=== PATIENT | male | born 1980 | race Caucasian/White ===

== ENCOUNTER 2016-05-14 12:08 | Inpatient (IN) ==
[2016-05-14] MEDS ORDERED: *HR* OxyCODONE/APAP 5/325 TABLET PO ONE (13:07)
[2016-05-14] MEDS ORDERED: Vancomycin 1,250 MG in D5% in Water 250 ML IVPB ONE (13:08)
[2016-05-14 13:38] LABS: INR 1.1; Prothrombin Time 11.5 Seconds (9.4-12.1)
[2016-05-14 13:41] LABS: Activated Partial Thrombo Time 31.8 Seconds (26.0-36.0)
--- NOTE | 2016-05-14 13:41 | Emergency Department Note ---
Disposition Clinical Impression: Cellulitis of hand Dog bite Qualifiers: Encounter type: subsequent encounter Qualified Code(s): W54.0XXD - Bitten by dog, subsequent encounter Disposition: Admitted As Inpatient Condition: Good Animal Bite HPI - General Chief Complaint: ED Animal Bite Stated Complaint: Dog bite to hand Time Seen by Provider: 05/14/16 12:33 Source: patient Mode of arrival: ambulatory Limitations: no limitations Nursing Notes Reviewed: Yes Vital Signs Reviewed: Yes - History of Present Illness HPI Narrative: Mr. Henderson is a 36-year-old male that present to the ED for dog bite to the right hand. Bit by previous pet while grabbing food from dog. Initially seen at [place] ED 4 days ago, following day seen by ortho. Patient seen by Ortho again yesterday, patient states he was told he would need admission for IV antibiotics. Patinet states R hand is painful and tight, admits to difficulty extending his fingers. He notes some clear drainage from wound sites and mild swelling of his R hand and fingers. Patient reports four episodes of vomiting 3 days ago and one episode last night. Patient admits to lightheadedness today, denies syncope. Pt Subjective Complaint: animal bite Onset (ago): day(s) Animal: dog Description of Animal: household pet Mechanism: bite Right: hand (3rd and 4th fingers) Pain Description: sharp, other (tight) Context: other (involving food) Associated symptoms: Denies: numbness, weakness, bleeding, fever, chills, rash, syncope, headache - Related Data Home Medications Medication Instructions Recorded Confirmed Clindamycin HCl [Cleocin HCl] 300 mg PO Q6H 05/14/16 05/14/16 Doxycycline Monohydrate [Mondoxyne 100 mg PO BID 05/14/16 05/14/16 Nl] OxyCODONE/APAP 5/325 [Percocet 1 each PO Q6HR PRN 05/14/16 05/14/16 5/325 MG] Previous Rx's Medication Instructions Recorded Naproxen [Naprosyn] 500 mg PO BID #14 tablet 12/07/14 Allergies Allergy/AdvReac Type Severity Reaction Status Date / Time hydrocodone AdvReac Headache Verified 05/14/16 15:03 Penicillins AdvReac Swelling Verified 05/14/16 12:16 of Lip/Tongue/Throat Sulfa (Sulfonamide AdvReac Swelling Verified 05/14/16 12:16 Antibiotics) of Lip/Tongue/Throat peaches AdvReac Swelling Uncoded 05/14/16 12:16 of Lip/Tongue/Throat All systems ED: reviewed and negative except as stated. Constitutional: Denies: fever, chills Eyes: Denies: vision change ENT ED: Denies: hearing loss Cardiovascular: Denies: chest pain Respiratory: Denies: dyspnea Gastrointestinal: Reports: nausea, vomiting. Denies: abdominal pain, melena, hematochezia Genitourinary: Denies: urgency, dysuria Neurological: Reports: other (lightheadedness) Past Medical History - Past Medical History Attestation: Yes The following information was validated with the patient. Source: patient Medical history: Reports: no medical history Surgical history: Reports: no surgical history Psychiatric history: Reports: no psych history - Social History Smoking Status: Current every day smoker Packs per day: 2 Smokeless Tobacco Status: No Alcohol use: Reports: occasionally Drug use: Reports: none Physical Exam - General Limitations: no limitations General appearance: alert, in no apparent distress - Head Head exam: atraumatic, normocephalic - Eye Eye exam: Present: normal appearance, EOMI - ENT ENT exam: normal exam, mucous membranes moist, normal external ear exam - Neck Neck exam: Present: normal inspection, full ROM - Chest Chest inspection: Present: normal inspection, symmetric chest wall rise - Respiratory Respiratory exam: Present: normal lung sounds bilaterally - Cardiovascular Cardiovascular exam: Present: regular rate, +S1, +S2 - Abdominal Exam Abdominal exam: Present: soft, Non-Tender, normal bowel sounds - Extremities Exam Extremities exam: Present: normal inspection, full ROM. Absent: pedal edema - Expanded Upper Extremity Exam Forearm/Wrist exam: Present: normal inspection. Absent: tenderness, swelling, erythema Hand exam: Present: tenderness (dorsum of R hand and 3rd and 4th fingers), swelling (of dorsum of R hand and 4th finger), erythema (of R 4th finger), other (notes mutliple small scabbed abrasions and lacerations on 3rd and 4th fingers on R hand) Neuromotor exam: Normal: wrist extension. Abnorm: fingers 2-5 abduction (due to pain) Vascular exam: Normal: capillary refill - Neurological Exam Neurological exam: Present: alert, oriented X3 - Psychiatric Psychiatric exam: Present: normal affect, normal mood - Skin Skin exam: Present: warm, dry Course Course Narrative: Patient started on IV vancomycin and pain control. Patient agreeable to admission. Plan to discuss case with ortho. - Consultations Consultation #1: Dr. Cole spoke to Dr. Wood who agrees to see patient. Will place consult to Ortho at this time. Time: 14:34 Consultation #2: Spoke to [employer] [employer] hospitalist, agreeable to accept patient. Vital Signs Temperature 97.6 F 05/14/16 12:11 Pulse Rate 110 05/14/16 12:11 Respiratory Rate 16 05/14/16 12:11 Blood Pressure 132/78 05/14/16 12:11 O2 Sat by Pulse Oximetry 97 05/14/16 12:11 Temperature 97.8 F 05/14/16 15:58 Pulse Rate 68 05/14/16 15:58 Respiratory Rate 16 05/14/16 15:58 Blood Pressure 111/73 05/14/16 15:58 O2 Sat by Pulse Oximetry 100 05/14/16 15:58 Oxygen Delivery Oxygen Delivery Room Air Animal Bite - Differential Diagnosis Differential Diagnosis: Likely: dog bite - Medical Records Medical records reviewed: Yes I reviewed the patient's medical records. - Lab Data Lab results reviewed: Yes I reviewed the patient's lab results. Result diagrams: 05/14/16 13:19 05/14/16 13:19 Lab Results 05/14/16 05/14/16 05/14/16 Range/Units 13:19 13:19 13:19 WBC 4.7 (4.3-11.1) K/mcL RBC 4.87 (4.19-5.50) M/mcL Hgb 14.8 (12.9-16.9) g/dL Hct 45.1 (37.5-50.1) % MCV 92.6 (83.0-100.0) fL MCH 30.4 (28.0-33.3) pg MCHC 32.8 (31.6-35.5) g/dL RDW 13.7 (11.5-14.5) % Plt Count 136 L (140-400) K/mcL MPV 13.2 H (9.4-12.4) fL Immature Gran % 0.2 (0-4) % Seg Neutrophils % 63.4 % Lymphocytes % 26.1 % Monocytes % 7.3 % Eosinophils % 2.4 % Basophils % 0.6 % Neutrophils # 3.0 (1.6-8.9) K/mcL Lymphocytes # 1.2 (0.6-4.6) K/mcL Monocytes # 0.3 (0.0-1.3) K/mcL Eosinophils # 0.1 (0.0-0.6) K/mcL Basophils # 0.0 (0.0-0.2) K/mcL ESR (0-10) mm/hr PT 11.5 (9.4-12.1) Seconds INR 1.1 APTT 31.8 (26.0-36.0) Seconds Sodium 138 (136-145) mEq/L Potassium 4.2 (3.5-4.5) mEq/L Chloride 103 (98-109) mEq/L Carbon Dioxide 29 (19-29) mEq/L BUN 13 (8-26) mg/dL Creatinine 1.05 (0.72-1.25) mg/dL Est GFR ( Amer) > 60 (> 60) Est GFR (Non-Af Amer) > 60 (> 60) BUN/Creatinine Ratio 12 (6-26) Glucose 72 (70-99) mg/dL Calculated Osmolality 285 (280-300) Lactic Acid (0.5-2.2) mmol/L Calcium 9.7 (8.6-10.8) mg/dL Magnesium 2.1 (1.6-2.6) mg/dL Total Bilirubin 0.4 (0.2-1.2) mg/dL Direct Bilirubin 0.2 (0.0-0.5) mg/dL Indirect Bilirubin 0.2 (0.0-1.2) mg/dL AST 37 H (5-34) Units/L ALT 67 H (0-55) Units/L Alkaline Phosphatase 63 (38-126) Units/L C-Reactive Protein (Less than 5) mg/L Serum Total Protein 7.4 (6.0-8.3) g/dL Albumin 3.9 (3.5-5.0) g/dL Globulin 3.5 (2.4-3.5) g/dL Albumin/Globulin Ratio 1.1 (1.1-2.2) 05/14/16 05/14/16 05/14/16 Range/Units 13:19 13:19 13:19 WBC (4.3-11.1) K/mcL RBC (4.19-5.50) M/mcL Hgb (12.9-16.9) g/dL Hct (37.5-50.1) % MCV (83.0-100.0) fL MCH (28.0-33.3) pg MCHC (31.6-35.5) g/dL RDW (11.5-14.5) % Plt Count (140-400) K/mcL MPV (9.4-12.4) fL Immature Gran % (0-4) % Seg Neutrophils % % Lymphocytes % % Monocytes % % Eosinophils % % Basophils % % Neutrophils # (1.6-8.9) K/mcL Lymphocytes # (0.6-4.6) K/mcL Monocytes # (0.0-1.3) K/mcL Eosinophils # (0.0-0.6) K/mcL Basophils # (0.0-0.2) K/mcL ESR 11 H (0-10) mm/hr PT (9.4-12.1) Seconds INR APTT (26.0-36.0) Seconds Sodium (136-145) mEq/L Potassium (3.5-4.5) mEq/L Chloride (98-109) mEq/L Carbon Dioxide (19-29) mEq/L BUN (8-26) mg/dL Creatinine (0.72-1.25) mg/dL Est GFR ( Amer) (> 60) Est GFR (Non-Af Amer) (> 60) BUN/Creatinine Ratio (6-26) Glucose (70-99) mg/dL Calculated Osmolality (280-300) Lactic Acid 1.2 (0.5-2.2) mmol/L Calcium (8.6-10.8) mg/dL Magnesium (1.6-2.6) mg/dL Total Bilirubin (0.2-1.2) mg/dL Direct Bilirubin (0.0-0.5) mg/dL Indirect Bilirubin (0.0-1.2) mg/dL AST (5-34) Units/L ALT (0-55) Units/L Alkaline Phosphatase (38-126) Units/L C-Reactive Protein 4 (Less than 5) mg/L Serum Total Protein (6.0-8.3) g/dL Albumin (3.5-5.0) g/dL Globulin (2.4-3.5) g/dL Albumin/Globulin Ratio (1.1-2.2) Attestation Statement - Attestation Attestation: I examined this patient and my medical decision-making was reviewed with the AIRCRAFT [employer]UCT[employer] REPAIRER/PA/Advanced Practice Nurse/Resident Physician. I agree with the documented findings, disposition and treatment plan as described except to the extent set forth below. She presents to the ER for evaluation of hand cellulitis. He was bitten by a small amount 2 days ago was seen by Dr. [facility] was following up today has concerns about worsening cellulitis and inability to extend his fingers without significant amount of pain she was sent here for evaluation. Trying pass range of motion flexion and extension of the hand patient has extreme amount of pain and has minimal erythema around the bite wound. We spoke with Dr Wood admit to the hospitalist service with consult for [facility]
[2016-05-14 13:47] LABS: Basophils % 0.6 %; Eosinophils # 0.1 K/mcL (0.0-0.6); Eosinophils % 2.4 %; Hematocrit 45.1 % (37.5-50.1); Hemoglobin 14.8 g/dL (12.9-16.9); Immature Granulocytes % 0.2 % (0-4); Lymphocytes # 1.2 K/mcL (0.6-4.6); Lymphocytes % 26.1 %; Mean Corpuscular HGB Conc 32.8 g/dL (31.6-35.5); Mean Corpuscular Hemoglobin 30.4 pg (28.0-33.3); Mean Corpuscular Volume 92.6 fL (83.0-100.0); Mean Platelet Volume 13.2 fL (9.4-12.4); Monocytes # 0.3 K/mcL (0.0-1.3); Monocytes % 7.3 %; Platelet Count 136 K/mcL (140-400); Red Blood Count 4.87 M/mcL (4.19-5.50); Red Cell Distribution Width 13.7 % (11.5-14.5); Segmented Neutrophils % 63.4 %
[2016-05-14 13:48] LABS: Alanine Aminotransferase 67 Units/L (0-55); Albumin 3.9 g/dL (3.5-5.0); Albumin/Globulin Ratio 1.1 (1.1-2.2); Alkaline Phosphatase 63 Units/L (38-126); Aspartate Amino Transferase 37 Units/L (5-34); BUN/Creatinine Ratio 12 (6-26); Bilirubin,Direct 0.2 mg/dL (0.0-0.5); Bilirubin,Indirect 0.2 mg/dL (0.0-1.2); Bilirubin,Total 0.4 mg/dL (0.2-1.2); Blood Urea Nitrogen 13 mg/dL (8-26); Calcium 9.7 mg/dL (8.6-10.8); Carbon Dioxide 29 mEq/L (19-29); Chloride 103 mEq/L (98-109); Globulin 3.5 g/dL (2.4-3.5); Glucose 72 mg/dL (70-99); Magnesium 2.1 mg/dL (1.6-2.6); Osmolality,Calculated 285 (280-300); Potassium 4.2 mEq/L (3.5-4.5); Sodium 138 mEq/L (136-145); Total Protein 7.4 g/dL (6.0-8.3); eGFR For African Americans > 60 (> 60); eGFR For Non-African Americans > 60 (> 60)
--- NOTE | 2016-05-14 17:26 | Internal Med History&Physical ---
Date of Encounter: 05/14/16 Time of Encounter: 17:00 Assessment and Plan (1) Dog bite Current visit: Yes Status: Acute - Bitten by vaccinated pet dog on 05/10. Low risk for rabies. - Patient failed to response to outpatient antibiotic treatment and needs to be admitted for further evaluation and management including IV antibiotics. - Given his penicillin allergy, will start Levofloxacin 500 mg IV q24H and metronidazole 500 mg IV q8H. - Continue to monitor. Qualifiers: Encounter type: subsequent encounter Qualified Code(s): W54.0XXD - Bitten by dog, subsequent encounter (2) Tenosynovitis of fingers Current visit: Yes Status: Suspected - Concern of septic tenosynovitis of right middle and ring finger. - Appreciate orthopedic surgery evaluation and recommendation/intervention. (3) Cellulitis of hand Current visit: Yes Status: Acute - Affecting right hand especially right middle and ring fingers. - See above. (4) Tobacco abuse Current visit: Yes Status: Acute - Patient smoked two pack/day. - Patient education about smoking cessation. - Consider to give nicotine patches if needed. (5) DVT prophylaxis Current visit: Yes Status: Acute - SQ heparin. Internal Medicine - H&P: HPI Chief complaint: Dog bite at right hand Admitted From: Home Plans for Post Hospital Care: Home History of present illness: Mr. Henderson is a 36 year old male without significant PMH who presented with right hand swelling and pain after a dog bite on 05/10. Patient went to [place] ED after the incident and started on Keflex. Patient was referred to see [place] [facility]/orthopedic surgery on 05/12. No surgical intervention was indicated at that time. Patient was told to continue antibiotic but also instructed to come to ED if symptoms worse. Patient reports persistent swelling and pain of right hand with right middle and ring fingers fixed at slightly flexed position. Patient reports no numbnes/tingling or weakness but cannot move those fingers due to pain. Patient also has some lightheadedness but denies fever, chills, chest pain, shortness of breath, cough, nausea, vomiting, diarrhea, dysuria, easily bleeding or bruise. Patient states the dog bit him is a pet dog with full vaccination and no known rabies. Patient reports allergy to penicillin with swelling throat. Past Med Surg Social Fam HX - Past Medical History Medical history: no medical history Psychiatric history: no psych history - Past Surgical History Surgical History: no surgical history - Social History Smoking Status: Current every day smoker Packs per day: 2 Smokeless Tobacco Status: No Alcohol use: occasionally Drug use: other (History of heroin abuse, last use three years ago per patient. ) Internal Medicine - H&P: Meds Naproxen [Naprosyn] 500 mg PO BID #14 tablet 12/07/14 [Rx] Clindamycin HCl [Cleocin HCl] 300 mg PO Q6H 05/14/16 [History] Doxycycline Monohydrate [Mondoxyne Nl] 100 mg PO BID 05/14/16 [History] OxyCODONE/APAP 5/325 [Percocet 5/325 MG] 1 each PO Q6HR PRN 05/14/16 [History] Allergies hydrocodone Adverse Reaction (Verified 05/14/16 15:03) Headache Penicillins Adverse Reaction (Verified 05/14/16 12:16) Swelling of Lip/Tongue/Throat Sulfa (Sulfonamide Antibiotics) Adverse Reaction (Verified 05/14/16 12:16) Swelling of Lip/Tongue/Throat peaches Adverse Reaction (Uncoded 05/14/16 12:16) Swelling of Lip/Tongue/Throat All Systems PM: A 10-system review of systems was performed and is negative for pertinent findings except as documented above in the HPI. - Constitutional Constitutional: no anorexia, no chills, no fever(s) - EENT Eyes: no change in vision Ears: no decreased hearing Nose, mouth and throat: no dysphagia, no odynophagia - Cardiovascular Cardiovascular ROS IM: lightheadedness, no chest pain, no palpitations, no syncope - Respiratory Respiratory: no cough, no dyspnea, no hemoptysis - Gastrointestinal Gastrointestinal: no abdominal pain, no hematochezia, no melena, no nausea, no vomiting - Genitourinary Genitourinary ROS male: no difficulty urinating, no dysuria, no hematuria - Musculoskeletal Musculoskeletal ROS IM: as per HPI - Integumentary Integumentary IM: as per HPI - Neurological Neurological ROS: no focal weakness, no numbness, no tingling - Hematologic/Lymphatic Hematologic/Lymphatic: no easy bleeding, no easy bruising - Constitutional Vitals: Temp Pulse Resp BP Pulse Ox 97.8 F 68 16 111/73 100 05/14/16 15:58 05/14/16 15:58 05/14/16 15:58 05/14/16 15:58 05/14/16 15:58 General appearance: Present: cooperative, A&O X 3, no acute distress, answers questions appropriately - Head Head exam: Present: atraumatic, normocephalic - Eye Eye exam: Present: PERRL, conjuntiva pink, sclera anicteric - Neck Neck exam general surgery: Present: supple, trachea midline. Absent: lymphadenopathy - Respiratory Respiratory exam: Present: CTAB. Absent: accessory muscle use, rales, rhonchi, wheezes - Cardiovascular Cardiovascular exam: Present: RRR, +S1, +S2. Absent: diastolic murmur, gallop, rubs, systolic murmur - GI/Abdominal GI/Abdominal exam: Present: normal bowel sounds, soft, no peritoneal signs. Absent: distended, tenderness - Extremities Exam Extremities exam: Present: warm, radial pulses palpable and symetrical. Absent : calf tenderness, cyanotic, pedal edema Additional comments: Dorsum of right hand and 3rd and 4th fingers swelling and tenderness to palpation. Multiple small scabbed abrasions and lacerations on 3rd and 4th fingers on right hand noted. The right hand and fingers are in slightly flexed position. - Neurological Exam Neurological exam: Present: CN II-XII intact, oriented X3, no focal deficits. Absent: pronater drift, facial droop, speech deficit - Skin Skin exam: Present: dry, intact Internal Med - H&P Results - Labs CBC & Chem 7: 05/14/16 13:19 05/14/16 13:19
[2016-05-14] MEDS ORDERED: Naloxone 0.4 MG/ML INJ IVP PRN (17:38)
[2016-05-14] MEDS ORDERED: Ondansetron 4 MG/2 ML VIAL IVP PRN (17:38)
[2016-05-14] MEDS: *HR* Morphine 2 MG/ML SYRINGE IVP PRN (19:26)
[2016-05-14] MEDS: Nicotine 21 MG PATCH.TD24 TD SCH (19:30)
[2016-05-14] MEDS: Levofloxacin 500 MG/100 ML 500 MG/100 ML BAG IVPB SCH (19:31)
[2016-05-14] MEDS: *HR* Heparin 5,000 UNIT/ML VIAL SQ SCH (19:35)
[2016-05-14] MEDS: MetroNIDAZOLE 500 MG/100 ML 500 MG/100 ML BAG IVPB SCH (20:27)
[2016-05-14] MEDS: *HR* OxyCODONE/APAP 5/325 TABLET PO PRN (23:09)
[2016-05-15 02:50] LABS: Basophils % 0.9 %; Eosinophils # 0.1 K/mcL (0.0-0.6); Eosinophils % 3.9 %; Hematocrit 41.4 % (37.5-50.1); Hemoglobin 13.7 g/dL (12.9-16.9); Immature Granulocytes % 0.3 % (0-4); Immature Platelets 14.7 % (1.1-6.1); Lymphocytes # 1.2 K/mcL (0.6-4.6); Lymphocytes % 36.5 %; Mean Corpuscular HGB Conc 33.1 g/dL (31.6-35.5); Mean Corpuscular Hemoglobin 30.4 pg (28.0-33.3); Mean Corpuscular Volume 91.8 fL (83.0-100.0); Mean Platelet Volume 12.8 fL (9.4-12.4); Monocytes # 0.3 K/mcL (0.0-1.3); Neutrophils # 1.7 K/mcL (1.6-8.9); Platelet Count 130 K/mcL (140-400); Red Blood Count 4.51 M/mcL (4.19-5.50); Red Cell Distribution Width 13.6 % (11.5-14.5); Segmented Neutrophils % 49.4 %
[2016-05-15 03:04] LABS: BUN/Creatinine Ratio 14 (6-26); Blood Urea Nitrogen 11 mg/dL (8-26); Calcium 8.9 mg/dL (8.6-10.8); Carbon Dioxide 24 mEq/L (19-29); Chloride 108 mEq/L (98-109); Glucose 93 mg/dL (70-99); Osmolality,Calculated 287 (280-300); Potassium 4.3 mEq/L (3.5-4.5); Sodium 139 mEq/L (136-145); eGFR For African Americans > 60 (> 60); eGFR For Non-African Americans > 60 (> 60)
[2016-05-15] MEDS: *HR* Morphine 2 MG/ML SYRINGE IVP PRN ×3 (03:25→20:17)
[2016-05-15] MEDS: MetroNIDAZOLE 500 MG/100 ML 500 MG/100 ML BAG IVPB SCH ×3 (03:28→20:17)
[2016-05-15] MEDS: *HR* OxyCODONE/APAP 5/325 TABLET PO PRN ×3 (06:36→23:20)
[2016-05-15] MEDS: *HR* Heparin 5,000 UNIT/ML VIAL SQ SCH ×2 (06:37→17:35)
[2016-05-15] MEDS: Nicotine 21 MG PATCH.TD24 TD SCH (08:12)
--- NOTE | 2016-05-15 12:32 | Internal Med Progress Note ---
<Lizz Paz - Last Filed: 05/15/16 14:55> Date of Encounter: 05/15/16 Time of Encounter: 10:00 - Assessment and plan (1) Dog bite Current Visit: Yes Status: Acute Assessment and plan: - Bitten by vaccinated pet dog on 05/10. Low risk for rabies. - Patient failed to response to outpatient antibiotic treatment and needs to be admitted for further evaluation and management including IV antibiotics. - Continue levofloxacin 500 mg IV q24H and metronidazole 500 mg IV q8H. - Continue to monitor. Qualifiers: Encounter type: subsequent encounter Qualified Code(s): W54.0XXD - Bitten by dog, subsequent encounter (2) Tenosynovitis of fingers Current Visit: Yes Status: Suspected Assessment and plan: - Concern of septic tenosynovitis of right middle and ring finger. - Significantly improves as patient can move his fingers much better with swelling and pain decreased. - Appreciate orthopedic surgery evaluation and recommendation. (3) Cellulitis of hand Current Visit: Yes Status: Acute Assessment and plan: - Affecting right hand especially right middle and ring fingers. - See above. (4) Tobacco abuse Current Visit: Yes Status: Acute Assessment and plan: - Patient smoked two pack/day. - Patient education about smoking cessation. - Consider to give nicotine patches if needed. (5) DVT prophylaxis Current Visit: Yes Status: Acute Assessment and plan: - SQ heparin. - Subjective Interval history: No significant event noted overnight. Patient was seen and examined this morning. Patient reports significant improvement of right hand swelling and pain and he can move his right hand and fingers much better compared to yesterday. Patient denies fever, chills, nausea, vomiting, diarrhea, chest pain , shortness of breath. - Constitutional Vitals: Temp Pulse Resp BP Pulse Ox 97.8 F 84 16 105/66 97 05/15/16 11:08 05/15/16 11:08 05/15/16 11:08 05/15/16 11:08 05/15/16 11:08 General appearance: Present: cooperative, A&O X 3, no acute distress, answers questions appropriately - Head Head exam: Present: atraumatic, normocephalic - Eye Eye exam: Present: PERRL, conjuntiva pink, sclera anicteric - Neck Neck exam general surgery: Present: supple, trachea midline. Absent: lymphadenopathy - Respiratory Respiratory exam: Present: CTAB. Absent: accessory muscle use, rales, rhonchi, wheezes - Cardiovascular Cardiovascular exam: Present: RRR, +S1, +S2. Absent: diastolic murmur, gallop, rubs, systolic murmur - GI/Abdominal GI/Abdominal exam: Present: normal bowel sounds, soft, no peritoneal signs. Absent: distended, tenderness - Extremities Exam Extremities exam: Present: warm, radial pulses palpable and symetrical. Absent : calf tenderness, cyanotic, pedal edema Additional comments: Dorsum of right hand and 3rd and 4th fingers swelling and tenderness to palpation, improves compared to yesterday as patient can move his right hand and fingers much better. Multiple small scabbed abrasions and lacerations on 3rd and 4th fingers on right hand also noted. - Neurological Exam Neurological exam: Present: CN II-XII intact, oriented X3, no focal deficits. Absent: pronater drift, facial droop, speech deficit - Skin Skin exam: Present: dry, warm Internal Medicine: Result - Labs CBC & Chem 7: 05/15/16 02:34 05/15/16 02:34 Labs: Short CBC 05/15/16 Range/Units 02:34 WBC 3.3 L (4.3-11.1) K/mcL Hgb 13.7 (12.9-16.9) g/dL Hct 41.4 (37.5-50.1) % Plt Count 130 L (140-400) K/mcL Neutrophils # 1.7 (1.6-8.9) K/mcL BMP 05/15/16 02:34 Sodium 139 Potassium 4.3 Chloride 108 Carbon Dioxide 24 BUN 11 Creatinine 0.81 Glucose 93 Calcium 8.9 - ABG Interpretation ABG results: PT/INR, D-dimer PT 11.5 Seconds (9.4-12.1) 05/14/16 13:19 Consult Discharge Plan - Plan Referrals: Marta Kearney, JUANITA [Primary Care Provider] - <Shyla Perry E - Last Filed: 05/15/16 19:21> - Constitutional Vitals: Temp Pulse Resp BP Pulse Ox 98.3 F 88 16 123/74 98 05/15/16 18:24 05/15/16 18:24 05/15/16 18:24 05/15/16 18:24 05/15/16 18:24 Internal Medicine: Result - Labs CBC & Chem 7: 05/15/16 02:34 05/15/16 02:34 - ABG Interpretation ABG results: PT/INR, D-dimer PT 11.5 Seconds (9.4-12.1) 05/14/16 13:19 - Attending Attestation I examined this patient and reviewed laboratory, imaging and all diagnostic data. My medical decision-making was reviewed with Lizz Arellano - Resident Physician. I agree with the documented findings, disposition and treatment plan as described above.
[2016-05-15] MEDS: Levofloxacin 500 MG/100 ML 500 MG/100 ML BAG IVPB SCH (17:36)
[2016-05-16] MEDS: MetroNIDAZOLE 500 MG/100 ML 500 MG/100 ML BAG IVPB SCH ×2 (03:17→10:27)
[2016-05-16] MEDS: *HR* Morphine 2 MG/ML SYRINGE IVP PRN (03:17)
[2016-05-16 03:57] LABS: Basophils % 0.7 %; Eosinophils # 0.1 K/mcL (0.0-0.6); Eosinophils % 2.4 %; Hematocrit 43.5 % (37.5-50.1); Hemoglobin 14.6 g/dL (12.9-16.9); Immature Granulocytes % 0.2 % (0-4); Lymphocytes # 1.4 K/mcL (0.6-4.6); Lymphocytes % 31.3 %; Mean Corpuscular HGB Conc 33.6 g/dL (31.6-35.5); Mean Corpuscular Hemoglobin 30.8 pg (28.0-33.3); Mean Corpuscular Volume 91.8 fL (83.0-100.0); Mean Platelet Volume 12.8 fL (9.4-12.4); Monocytes # 0.3 K/mcL (0.0-1.3); Monocytes % 7.5 %; Neutrophils # 2.6 K/mcL (1.6-8.9); Platelet Count 134 K/mcL (140-400); Red Blood Count 4.74 M/mcL (4.19-5.50); Red Cell Distribution Width 13.5 % (11.5-14.5); Segmented Neutrophils % 57.9 %
[2016-05-16 04:08] LABS: BUN/Creatinine Ratio 17 (6-26); Blood Urea Nitrogen 15 mg/dL (8-26); Calcium 9.1 mg/dL (8.6-10.8); Carbon Dioxide 23 mEq/L (19-29); Chloride 107 mEq/L (98-109); Glucose 88 mg/dL (70-99); Osmolality,Calculated 286 (280-300); Potassium 4.1 mEq/L (3.5-4.5); Sodium 138 mEq/L (136-145); eGFR For African Americans > 60 (> 60); eGFR For Non-African Americans > 60 (> 60)
[2016-05-16] MEDS: *HR* Heparin 5,000 UNIT/ML VIAL SQ SCH (05:30)
[2016-05-16 06:49] VITALS: BP 116/71
[2016-05-16] MEDS: Nicotine 21 MG PATCH.TD24 TD SCH (08:15)
--- NOTE | 2016-05-16 11:00 | Discharge Summary ---
Date of Encounter: 05/16/16 Time of Encounter: 10:00 - Discharge Diagnosis (1) Dog bite Priority: Primary Status: Acute Qualifiers: Encounter type: subsequent encounter Qualified Code(s): W54.0XXD - Bitten by dog, subsequent encounter (2) Cellulitis of hand Priority: Primary Status: Acute (3) Tenosynovitis of fingers Priority: Primary Status: Suspected (4) Tobacco abuse Priority: Secondary Status: Chronic - Discharge Medications Prescriptions: OxyCODONE/APAP 5/325 [Percocet 5/325 MG] 1 each PO Q6HR PRN #7 tablet PRN Reason: Moderate Pain Levofloxacin 500 mg PO DAILY #8 tablet MetroNIDAZOLE [Flagyl] 500 mg PO TID #24 tablet Nicotine Patch [Nicoderm] 21 mg TD DAILY #30 patch.td24 Home Medications: Naproxen [Naprosyn] 500 mg PO BID #14 tablet 12/07/14 [Rx] OxyCODONE/APAP 5/325 [Percocet 5/325 MG] 1 each PO Q6HR PRN 05/14/16 [History] Levofloxacin 500 mg PO DAILY #8 tablet 05/16/16 [Rx] MetroNIDAZOLE [Flagyl] 500 mg PO TID #24 tablet 05/16/16 [Rx] Nicotine Patch [Nicoderm] 21 mg TD DAILY #30 patch.td24 05/16/16 [Rx] OxyCODONE/APAP 5/325 [Percocet 5/325 MG] 1 each PO Q6HR PRN #7 tablet 05/16/16 [ Rx] Allergies/Adverse Reactions: Allergies hydrocodone Adverse Reaction (Verified 05/14/16 15:03) Headache Penicillins Adverse Reaction (Verified 05/14/16 12:16) Swelling of Lip/Tongue/Throat Sulfa (Sulfonamide Antibiotics) Adverse Reaction (Verified 05/14/16 12:16) Swelling of Lip/Tongue/Throat peaches Adverse Reaction (Uncoded 05/14/16 12:16) Swelling of Lip/Tongue/Throat Date of admission: 05/15/16 12:35 Primary care physician: Marta Kearney - Patient Status Disposition: Home, Self-Care Condition: Good Functional capacity at discharge: independent ambulation Overall status at discharge: patient is progressing back to baseline - Discharge Instructions Instructions: Oxycodone/Acetaminophen (By mouth), Metronidazole (By mouth), Nicotine (Absorbed through the skin), Levofloxacin (By mouth) Follow Up With: Marta Kearney DIETARY AIDE [Primary Care Provider] - Additional Instructions: - Follow up in the orthopedic clinic with Dr Hartman, please call the office on Wednesday. - stop smoking - Diet and Activity Activity: resume usual activities as tolerated (right hand rest) Diet: regular diet Interval History: Patient feels much better, he is able to flex all his fingers, he is eager to go home. Hospital course: Mr. Henderson is a 36 year old male with past medical history of tobacco use who had his right finger bitten by a vaccinated pet dog on May 10. He was seen in ED and diagnosed of dog bite and sent home on Keflex. He was seen in our [place] and no indication for surgery at that time. Patient failed to respond to outpatient antibiotic treatment and give suspicion for right fingers tenosynovitis he was admitted to our hospital for IV antibiotics. He received IV levofloxacin and IV Flagyl with significant clinical improvement. PLAN: In the [facility] orthopedic surgery on 05/18/2016. Continue oral Flagyl and oral vancomycin for a total of 10 days. - Time Spent with Patient Total time spent providing and/or coordinating discharge services: - Constitutional Vitals: Temp Pulse Resp BP Pulse Ox 98.1 F 86 16 116/71 96 05/16/16 06:46 05/16/16 06:46 05/16/16 06:46 05/16/16 06:46 05/16/16 06:46 General appearance: Present: cooperative, A&O X 3, no acute distress, answers questions appropriately - Eye Eye exam: Present: PERRL, sclera anicteric - Neck Neck exam general surgery: Present: supple, trachea midline. Absent: lymphadenopathy - Respiratory Respiratory exam: Present: CTAB - Cardiovascular Cardiovascular exam: Present: RRR - GI/Abdominal GI/Abdominal exam: Present: normal bowel sounds, soft. Absent: distended, tenderness - Extremities Exam Additional comments: Dorsum of right hand and 3rd and 4th fingers swelling and tenderness to palpation, epicondyle improved compared to admission as patient can flex all his fingers. Multiple small scabbed abrasions and lacerations on 3rd and 4th fingers on right hand also noted. - Back Exam Back exam: Absent: CVA tenderness (L), CVA tenderness (R) - Neurological Exam Neurological exam: Present: alert, oriented X3, no focal deficits, strengths equal and symetr throughout. Absent: facial droop, speech deficit
== END 2016-05-16 11:50 | disposition home or self-care (01) | DRG 383 ==
LOC: 3BNU 12:08 → EMEROO 12:08 → 3BNU 15:52
PROVIDERS: ADMIT Nurse Practitioner Family; ATTEND Internal Medicine